=== PATIENT | male | born 1965 | race Caucasian/White ===

== ENCOUNTER 2019-01-01 19:38 | Emergency (ER) | payer OTHER ==
[2019-01-01 19:56] VITALS: BP 158/90
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
[2019-01-01] MEDS ORDERED: IBUPROFEN PO ONE (22:12)
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
--- NOTE | 2019-01-01 23:20 | XRay Report ---
LUMBAR SPINE, 3 VIEWS, 01/01/2019 INDICATION / CLINICAL INFORMATION: lower back pain. COMPARISON: None available. FINDINGS: Vertebral body heights and disc spaces are fairly well-preserved. No visible acute fracture. However, there does appear to be spondylolysis at L5-S1. No significant malalignment. Mild diffuse spondylytic change noted. IMPRESSION: Spondylolysis, L5-S1. No significant spondylolisthesis at this time. Signer Name: Belen Fernandes MD Signed: 01/01/2019 11:15 PM Workstation Name: [id number]
== END 2019-01-02 00:19 | disposition home or self-care (01) ==
LOC: ED 19:38
DX: M62.830 Muscle spasm of back (principal); M25.512 Pain in left shoulder; V89.2XXA Person injured in unspecified motor-vehicle accident, traffic, initial encounter; Y93.89 Activity, other specified; Y92.89 Other specified places as the place of occurrence of the external cause; Y99.8 Other external cause status
CPT/HCPCS: 72100; 99283